=== PATIENT | male | born 1975 | race African-American/Black ===

== ENCOUNTER 2020-02-22 16:55 | Emergency (ER) | payer OTHER, MEDICAID ==
[~2020-02-22] VITALS: Ht 172.7 cm; Wt 83.9 kg
[2020-02-22 17:10] VITALS: BP 144/79
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
--- NOTE | 2020-02-22 17:34 | NUR ---
DR. DA SILVA AT BEDSIDE EVALUATING PT
--- NOTE | 2020-02-22 17:45 | NUR ---
PT REFUSED BLOOD DRAW, ERMD AWARE
[2020-02-22 18:33] VITALS: BP 144/79
--- NOTE | 2020-02-22 18:33 | NUR ---
Patient discharged with v/s stable. Written and verbal after care instructions given and explained. Patient verbalized understanding. Ambulatory with steady gait. All questions addressed prior to discharge. Advised to follow up with PMD.
[2020-02-25 06:24] LABS: CHLAMYDIA TRACHOMATIS AMP DNA Negative (Negative)
== END 2020-02-22 18:33 | disposition home or self-care (01) ==
LOC: MED 16:55
DX: T74.21XA Adult sexual abuse, confirmed, initial encounter (principal); R51 Headache; M54.2 Cervicalgia; R55 Syncope and collapse
CPT/HCPCS: 36415; 99283